=== PATIENT | female | born 1995 | race African-American/Black ===

== ENCOUNTER 2020-10-01 13:20 | Emergency (ER) | payer SELFPAY ==
[2020-10-01 13:34] VITALS: BP 152/100; PULSE 88; TEMP 99.2; BMI 33.4
[2020-10-01] MEDS ORDERED: DIPHTH,PERTUSS(ACELL),TET 0.5 ML DISP.SYRIN IM ONE ×2 (13:49→13:56)
== END 2020-10-01 14:35 | disposition home or self-care (01) ==
LOC: FER 13:20
PROC: 0JQ10ZZ Repair Face Subcutaneous Tissue and Fascia, Open Approach (ICD-10-PCS; principal; 2020-10-01)
PROC: 3E0234Z Introduction of Serum, Toxoid and Vaccine into Muscle, Percutaneous Approach (ICD-10-PCS; 2020-10-01)
DX: S01.81XA Laceration without foreign body of other part of head, initial encounter (principal)
CPT/HCPCS: 90715; 99284-25